=== PATIENT | male | born 1990 | race American Indian/Alaskan Native ===

== ENCOUNTER 2022-05-12 16:18 | Emergency (ER) | payer SELFPAY ==
--- NOTE | 2022-05-12 16:35 | Emergency Department Report ---
ED CPR HPI - General Chief Complaint: Cardiac Arrest/CPR Stated Complaint: Cardiac arrest Time Seen by Provider: 05/12/22 16:18 Source: EMS Mode of arrival: Stretcher Limitations: Altered Mental Status, Physical Limitation - History of Present Illness Initial Comments: Patient is a 32-year-old male that presents emergency room for cardiac arrest. Patient brought in by EMS. EMS states that the patient was found inside his car in his driveway by his family at 1500. Last known well time was last night when the patient went out with friends. EMS arrived and the patient was found to be asystole. Patient was given multiple medications by EMS. Patient was defibrillated for V. tach by EMS. Patient has 6 epis prior to arrival. Patient also had to have hypoglycemia and patient was given D50. EMS placed a Combitube and adequate ventilations being delivered with the BVM. Complaint: found unresponsive -: unknown Place: home Bystander CPR Performed: No AED Applied by Bystander/Sueding And Buffing Machine Operator: No Initial Findings in the Field: unresponsive, no respirations, no pulse ROSC in the Field: No Associated Injuries: No Treatments Prior to Arrival: BMV, other airway device, chest compressions, defribrillated shocks #, epinephrine mgs #, glucose ED Review of Systems ROS: Stated complaint: CA Other details as noted in HPI Comment: Unobtainable due to pts medical conditions ED Past Medical Hx - Past Medical History Previous Medical History?: No - Surgical History Past Surgical History?: No - Family History Family history: no significant - Social History Smoking Status: Unknown if ever smoked Substance Use Type: None ED Physical Exam - General Limitations: Altered Mental Status, Physical Limitation General appearance: other - Head Head exam: Present: atraumatic, normocephalic - Eye Eye exam: Present: periorbital swelling Pupils: Present: other (Pupils are fixed and dilated.) - ENT ENT exam: Present: mucous membranes dry - Neck Neck exam: Present: normal inspection - Respiratory Respiratory exam: Present: decreased breath sounds, other (Bilateral breath sounds noted. Patient is intubated with a Kelvin tube. And ventilated with a BVM.) - Cardiovascular Cardiovascular Exam: Present: regular rate, normal rhythm. Absent: systolic murmur, diastolic murmur, rubs, gallop - GI/Abdominal GI/Abdominal exam: Present: soft - Rectal Rectal exam: Present: deferred - Extremities Exam Extremities exam: Present: normal inspection - Neurological Exam Neurological exam: Present: altered - Skin Skin exam: Present: warm, dry, intact, normal color. Absent: rash ED Course - Reevaluation(s) Reevaluation #1: 05/12/22 16:06 patient arrived via EMS and the patient transferred to our [facility]. CPR continued. Report received from EMS. Patient has bilateral breath sounds with the Kelvin tube that was placed by EMS. Last epi 1604 just prior to arrival. That was the sixth epi from EMS. Patient was found to have low glucose and EMS gave the patient D50. Patient was asystole and then went into the tach and EMS defibrillated the patient. EMS also gave the patient Narcan. After defibrillation, the patient had spontaneous return of circulation but went back into asystole. CPR was continued. Reevaluation #2: Resuscitation efforts were terminated due to no signs of life. Patient is asystole on the monitor. Patient has no pulse. Code ran in accordance with ACLS guidelines. See nurses code note. 05/12/22 16:14 ED Medical Decision Making - Medical Decision Making Patient is a 32-year-old male that presents emergency room and cardiac arrest for unknown reason. Patient was found down inside of his car in the driveway. Patient's last known well time by family was the night prior before the patient went out with some friends. Patient brought in by EMS. EMS placed a Combitube for oxygen delivery and adequate breath sounds were noted on exam when bagged with BVM. Patient received multiple medications prior to arrival. Patient had 6 rounds of epi. Patient was given 2 of Narcan and had spontaneous return of circulation for a moment and then went into V. tach V. fib patient was defibrillated and went into asystole. Patient's been asystole ever since. EMS also noted the patient to be hypoglycemic and the patient was given D50. Patient brought to emergency room and care was assumed by emergency room staff and myself. Patient's goals were in accordance with ACLS guidelines. Patient given multiple medications here. Patient resuscitation efforts were terminated due to no signs of life and no chance of survival. Patient was asystole on the monitor, no pulse noted. No cardiac motion noted. See nurses code note for arrest record. I was at bedside the entire time the patient was in the ER. Critical care time documented due to the multiple reassessments, prolonged time at the bedside, interpretation of EKG and cardiac rhythms and ACLS guidelines... Initial radio report from EMS received 10 minutes prior to arrival to the ER. - Differential Diagnosis Cardiac arrest, overdose, MO, PE Critical Care Time: Yes Critical care time in (mins) excluding proc time.: 35 Critical care attestation.: If time is entered above; I have spent that time in minutes in the direct care of this critically ill patient, excluding procedure time. Critical Care Time: 35 minutes ED Disposition Clinical Impression: Cardiac arrest Disposition: 20 Is pt being admited?: No Does the pt Need Aspirin: No Condition: Undetermined Time of Disposition: 16:30
== END 2022-05-13 01:00 ==
LOC: ED 16:18
DX: I46.9 Cardiac arrest, cause unspecified (principal)
CPT/HCPCS: 92950; 99285